=== PATIENT | male | born 1965 | race Caucasian/White ===

== ENCOUNTER 2017-11-11 14:05 | Emergency (ER) | payer SELFPAY ==
--- NOTE | 2017-11-11 14:52 | ER Document Report ---
ED Medical Screen (RME) - General Chief Complaint: Foot Pain Stated Complaint: NAUSEA Time Seen by Provider: 11/11/17 14:49 Mode of Arrival: Ambulatory Information source: Patient TRAVEL OUTSIDE OF THE [place] IN LAST 30 DAYS: No - HPI Patient complains to provider of: R foot pain Onset: Other - pt states he has been having R foot pain and blood in urine - Related Data Allergies/Adverse Reactions: Sulfa (Sulfonamide Antibiotics) Allergy (Verified 11/11/17 14:07) Past Medical History - Social History Chew tobacco use (# tins/day): No Frequency of alcohol use: Heavy Drug Abuse: None Renal/ Medical History: Denies: Hx Peritoneal Dialysis Physical Exam - Vital signs Vitals: Temp Pulse Resp BP Pulse Ox 97.9 F 108 H 19 162/96 H 97 11/11/17 14:33 11/11/17 14:33 11/11/17 14:33 11/11/17 14:33 11/11/17 14:33 Course - Vital Signs Vital signs: Temp Pulse Resp BP Pulse Ox 97.9 F 108 H 19 162/96 H 97 11/11/17 14:33 11/11/17 14:33 11/11/17 14:33 11/11/17 14:33 11/11/17 14:33
[2017-11-11 15:45] LABS: ABSOLUTE EOSINOPHILS # (AUTO) 0.1 10^3/uL (0.0-0.6); ABSOLUTE MONOCYTES (AUTO) 0.5 10^3/uL (0.1-1.4); ABSOLUTE NEUT (AUTO) 2.2 10^3/uL (1.7-8.2); BASOPHILS % (AUTO) 0.5 % (0-2); EOSINOPHILS % (AUTO) 1.9 % (0-6); HEMATOCRIT 47.9 % (37.9-51.0); HEMOGLOBIN 16.7 g/dL (13.5-17.0); LYMPHOCYTES % (AUTO) 27.2 % (13-45); MEAN CORPUSCULAR HEMOGLOBIN 32.9 pg (27.0-33.4); MEAN CORPUSCULAR HGB CONC 34.8 g/dL (32.0-36.0); MEAN CORPUSCULAR VOLUME 95 fl (80-97); MONOCYTES % (AUTO) 13.1 % (3-13); PLATELET COUNT 108 10^3/uL (150-450); RED BLOOD COUNT 5.06 10^6/uL (4.35-5.55); SEGMENTED NEUTROPHILS % (AUTO) 57.3 % (42-78); TOTAL CELLS COUNTED % (AUTO) 100 %; WHITE BLOOD COUNT 3.8 10^3/uL (4.0-10.5)
[2017-11-11 15:58] LABS: ALANINE AMINOTRANSFERASE 236 U/L (21-72); ALBUMIN 4.3 g/dL (3.5-5.0); ALCOHOL 255 mg/dL (NONE DETECTED); ALKALINE PHOSPHATASE 119 U/L (38-126); ANION GAP 12 (5-19); ASPARTATE AMINO TRANSFERASE 199 U/L (17-59); BILIRUBIN,DIRECT 0.5 mg/dL (0.0-0.4); BILIRUBIN,TOTAL 0.8 mg/dL (0.2-1.3); BLOOD UREA NITROGEN 6 mg/dL (7-20); CALCIUM 9.4 mg/dL (8.4-10.2); CARBON DIOXIDE 26 mmol/L (22-30); CHLORIDE 102 mmol/L (98-107); GLUCOSE 86 mg/dL (75-110); POTASSIUM 4.2 mmol/L (3.6-5.0); SODIUM 140.4 mmol/L (137-145); TOTAL PROTEIN 7.2 g/dL (6.3-8.2)
[2017-11-11 16:08] LABS: APPEARANCE,URINE CLEAR; BILIRUBIN,URINE NEGATIVE (NEGATIVE); COLOR,URINE STRAW; GLUCOSE, URINE NEGATIVE (NEGATIVE); KETONES,URINE NEGATIVE (NEGATIVE); LEUKOCYTE ESTERASE,URINE NEGATIVE (NEGATIVE); NITRITE,URINE NEGATIVE (NEGATIVE); PROTEIN,URINE NEGATIVE (NEGATIVE); URINE SPECIFIC GRAVITY 1.002; UROBILINOGEN,URINE NEGATIVE mg/dL (<2.0)
--- NOTE | 2017-11-11 16:14 | RADIOLOGY REPORT (SQ) ---
EXAM DESCRIPTION: FOOT RIGHT COMPLETE COMPLETED DATE/TIME: 11/11/2017 3:56 pm REASON FOR STUDY: swelling; pain COMPARISON: None. NUMBER OF VIEWS: Three views. TECHNIQUE: AP, lateral and oblique without weight bearing radiographic images acquired of the right foot. LIMITATIONS: None. FINDINGS: MINERALIZATION: Normal. BONES: No acute fracture or dislocation. No worrisome bone lesions. No significant osteophytes. JOINTS: No erosions. No shmuel-articular osteopenia. No chondrocalcinosis. SOFT TISSUES: No swelling. No calcifications. OTHER: No other significant finding. IMPRESSION: NEGATIVE STUDY OF THE RIGHT FOOT. NO EXPLANATION FOR PAIN. TECHNICAL DOCUMENTATION: JOB ID: [id number] [employer]- All Rights Reserved
[2017-11-11 18:12] VITALS: BP 142/89
--- NOTE | 2017-11-11 18:33 | ER Document Report ---
ED General - General Chief Complaint: Foot Pain Stated Complaint: NAUSEA Time Seen by Provider: 11/11/17 14:49 Mode of Arrival: Ambulatory Notes: Patient presents with right ankle swelling and pain 3 days. No injury. No redness or fever. History of foot drop on that side and severe lumbar spine disease. Also complains of new onset fecal incontinence, with diarrhea for about 3 days. Denies saddle anesthesia or numbness or tingling. No injection drug use. TRAVEL OUTSIDE OF THE [place] IN LAST 30 DAYS: No - Related Data Allergies/Adverse Reactions: Sulfa (Sulfonamide Antibiotics) Allergy (Verified 11/11/17 14:07) Past Medical History - General Information source: Patient - Social History Smoking Status: Current Every Day Smoker Chew tobacco use (# tins/day): No Smoking Education Provided: Yes - The patient ED visit today was directly related to their abuse of tobacco. Frequency of alcohol use: Heavy Drug Abuse: None Family History: None Patient has suicidal ideation: No Patient has homicidal ideation: No Renal/ Medical History: Denies: Hx Peritoneal Dialysis Review of Systems - Review of Systems Notes: REVIEW OF SYSTEMS GEN: Denies fever, chills, weight loss ENT: Denies sore throat, nasal discharge, ear pain EYES: Denies blurry vision, eye pain, discharge CV: Denies chest pain, palpitations, edema RESP: Denies cough, shortness of breath, wheezing GI: D diarrhea fecal incontinence no abdominal pain a MSK: Swelling and edema SKIN: Denies rash, skin lesions LYMPH: Denies swollen glands/lymph nodes NEURO: Right-sided foot drop chronic PSYCH: Denies depression, suicidal or homicidal ideation PHYSICAL EXAMINATION General: No acute distress, well-nourished Head: Atraumatic, normocephalic ENT: Mouth normal, oropharynx moist, no exudates or tonsillar enlargement Eyes: Conjunctiva normal, pupils equal, lids normal Neck: No JVD, supple, no guarding CVS: Normal rate, regular rhythm, no murmurs Resp: No resp distress, equal and normal breath sounds bilaterally GI: Nondistended, soft, no tenderness to palpation, no rebound or guarding Ext: Moderate edema around the right ankle with good range of motion and no apparent effusion. Back: No CVA or midline TTP Skin: No rash, warm Lymphatic: No lymphadeopathy noted Neuro: Awake, alert. Face symmetric. GCS 15. Decreased strength in p right ankle dorsiflexion. Normal plantar flexion. Normal sensation. Physical Exam - Vital signs Vitals: Temp Pulse Resp BP Pulse Ox 97.9 F 108 H 19 162/96 H 97 11/11/17 14:33 11/11/17 14:33 11/11/17 14:33 11/11/17 14:33 11/11/17 14:33 Course - Re-evaluation Re-evalutation: 11/11/17 18:32 Patient presents with recent onset diarrhea and fecal incontinence which may be due to diarrhea but is concerning for cauda equina in the setting of chronic right foot drop and known lumbar disc disease. I evaluation of the mild leukopenia is normal. Foot x-rays negative. Doubt septic joint given good range of motion and the patient is weightbearing. Offered lumbar spine MRI to rule out cauda equina the patient refused. Recommended return to ED if he changes his mind or expeditious primary care follow-up. I have discussed with the patient there likely diagnosis, aftercare plan, follow-up plans and my usual and customary return precautions. They verbalized understanding of this. - Vital Signs Vital signs: Temp Pulse Resp BP Pulse Ox 98.5 F 88 18 142/89 H 99 11/11/17 18:10 11/11/17 18:10 11/11/17 18:10 11/11/17 18:10 11/11/17 18:10 - Laboratory Result Diagrams: 11/11/17 15:15 11/11/17 15:15 Laboratory results interpreted by me: 11/11/17 11/11/17 15:15 15:15 WBC 3.8 L Plt Count 108 L Monocytes % 13.1 H BUN 6 L Direct Bilirubin 0.5 H AST 199 H ALT 236 H Discharge - Discharge Clinical Impression: Right ankle swelling Condition: Good Disposition: HOME, SELF-CARE Additional Instructions: Please follow-up with your primary care doctor in 2-3 days. You were seen for right ankle swelling and fecal incontinence. We were offered MRI to rule out spinal cord compression but refused. If you change your mind at any point please return to the emergency room and we can do the MRI for you. We did not find a dangerous cause of your ankle swelling.
== END 2017-11-11 18:37 | disposition home or self-care (01) ==
LOC: ER 14:05
DX: M25.471 Effusion, right ankle (principal); M51.9 Unspecified thoracic, thoracolumbar and lumbosacral intervertebral disc disorder; M21.371 Foot drop, right foot; R19.7 Diarrhea, unspecified; R15.9 Full incontinence of feces; F17.200 Nicotine dependence, unspecified, uncomplicated; Z88.2 Allergy status to sulfonamides
CPT/HCPCS: 36415; 80053; 80307; 81001; 85025; 99284

== ENCOUNTER 2017-11-12 13:37 | Emergency (ER) | payer SELFPAY ==
--- NOTE | 2017-11-12 15:09 | ER Document Report ---
HPI - HPI Pain Level: 4 Notes: Patient is a 52-year-old male with a history of chronic back pain who presents to the ED complaining of right lower leg swelling 2 weeks. Patient states that he was here yesterday and declined the MRI of the back at that time. Patient thought about it some more and decided that he wanted to come in for another evaluation. Patient states that he has not had any worsening back pain. Patient states that he is ambulatory without any difficulties otherwise. Patient states that he does have some diarrhea and on occasion has difficulty holding in his gas and "sharts" himself. Patient states that he can still feel when he has to go to the bathroom. He is urinating normally without any retention or loss of control. Patient has not had any injections or surgeries to his lower back. He denies any history of diabetes surgery or recent illness. Patient states that he was told he may need an MRI of his lower back to further evaluate for possible cauda equina, but patient has not had any saddle anesthesia either. He still eating and drinking without difficulties otherwise. He has not noticed any melena or hematochezia. Patient has never had a colonoscopy performed in the past either. Patient states that he does not have any back pain currently and is just concerned with the edema/swelling to his right lower leg. Denies any headache, fever, neck pain, URI, sore throat, chest pain, palpitations, syncope, cough, shortness of breath, wheeze, dyspnea, abdominal pain, nausea/vomiting/diarrhea, urinary retention, dysuria, hematuria, loss of control of bowel or bladder, numbness/ tingling, saddle anesthesia, muscle paralysis/weakness, or rash. + smoker, no IV drugs. - ROS Systems Reviewed and Negative: Yes All other systems reviewed and negative Past Medical History - Social History Smoking Status: Current Every Day Smoker Family History: None Renal/ Medical History: Denies: Hx Peritoneal Dialysis Vertical Provider Document - CONSTITUTIONAL Agree With Documented VS: Yes Notes: PHYSICAL EXAMINATION: GENERAL: Well-appearing, well-nourished and in no acute distress. LUNGS: Breath sounds clear to auscultation bilaterally and equal. No wheezes rales or rhonchi. HEART: Regular rate and rhythm without murmurs, rubs, gallops. ABDOMEN: Soft, nontender, nondistended abdomen. No guarding, no rebound. No masses appreciated. Normal bowel sounds present. No CVA tenderness bilaterally. No pulsatile mass. No obvious inguinal adenopathy or mass. Rectal: sphincter tone intact w/o obvious deficit. Musculoskeletal: LE's b/l: FROM to passive/active. Strength 5+/5. No deficits noted. No bony tenderness of extremities. Back: FROM to passive/active. Strength 5+/5 b/l*. Non-tender. No vertebral point tenderness, stepoffs, or deformities. No other bony tenderness, erythema , swelling, or ecchymosis. SLR negative b/l. No foot drop. Extremities: 2+ pitting edema rt ankle. No edema left. Peripheral pulses 2+. Capillary refill less than 2 seconds. NEUROLOGICAL: Normal speech, normal gait. Normal sensory, motor exams. Reflexes 2+ b/l. PSYCH: Normal mood, normal affect. SKIN: Warm, Dry, normal turgor, no rashes or lesions noted. - INFECTION CONTROL TRAVEL OUTSIDE OF THE [place] IN LAST 30 DAYS: No - RESPIRATORY O2 Sat by Pulse Oximetry: 97 Course - Re-evaluation Re-evalutation: 11/12/17 15:07 I did review this case with Dr. Montaño as this was a return visit from yesterday who is in agreement with assessment and direction of treatment. Patient is an afebrile, well-hydrated, 52-year-old male who presents to the ED with right lower extremity edema. Vitals are stable. PE is otherwise unremarkable for any focal neurological deficits. Patient's back exam was benign with rectal sphincter tone intact, reflexes intact, no saddle anesthesia , and no suspicion of urinary retention/loss of control or b/b. Patient is neurovascularly intact distal otherwise with no foot drop. I do not feel that an MRI is warranted at this time based on H&P. I believe that the patient would most benefit from investigation of possible DVT due to the unilateral leg swelling with venous Doppler. Venous Doppler ordered and pending. Patient is in agreement with plan. 11/12/17 16:11 Venous Doppler negative preliminary report. Low suspicion for any meningitis, fracture, expanding/ruptured AAA, cauda equina syndrome, epidural mass lesion/abscess, herniated disc causing severe spinal stenosis, DVT, or other systemic infection at this time. Patient is aware that his condition can change from initial presentation and that he needs monitor symptoms closely for any acute changes. Recommend conservative measures for symptoms. Recheck with your PCM in 3-5 days. Consider consult with a vascular surgeon/orthopedic. Return to the ED with any worsening/ concerning symptoms otherwise as reviewed discharge. Patient is in agreement. - Vital Signs Vital signs: Temp Pulse Resp BP Pulse Ox 98.0 F 94 17 139/90 H 97 11/12/17 13:41 11/12/17 13:41 11/12/17 13:41 11/12/17 13:41 11/12/17 13:41 Discharge - Discharge Clinical Impression: Edema of right lower extremity Condition: Stable Disposition: HOME, SELF-CARE Instructions: Dependent Edema ([facility]) Additional Instructions: Rest, Ice, Compression, Elevation Compression stockings* Tylenol/ibuprofen as needed Light stretches daily Strength exercises as able Moist heat and massage may help F/u with your PCP in 3-5 days for a recheck Consider consult(s) with Orthopedics/physical therapy/Vascular surgeon for ongoing/worsening symptoms Return to the ED with any worsening symptoms and/or development of fever, headache, chest pain, palpitations, syncope, shortness of breath, trouble breathing, abdominal pain, n/v/d, blood in stool/urine, loss of control of bowel /bladder, urinary retention, muscle weakness/paralysis, saddle anesthesia, numbness/tingling, or other worsening symptoms that are concerning to you. Forms: Elevated Blood Pressure, Smoking Cessation Education Referrals: [facility] [Provider Group] - Follow up as needed
[2017-11-12 16:41] VITALS: BP 139/87
--- NOTE | 2017-11-13 07:45 | XCELERA REPORT ---
[address] [address] Lower Extremity Venous Evaluation Name: RIAN MARC Age: 52 yrs Gender: Male : 1965 Patient Status: Emergency Patient Location: ER Study Date: 11/12/2017 03:45 PM Procedure: Color flow and duplex imaging of the veins of the right lower extremity as well as the left Common Femoral vein. Reason For Study: Rt LE edema, unilateral Ordering Physician: DELMI SAMS PA-C Performed By: Jennifer Varela Right Sided Venous Evaluation Normal vessel filling wall to wall, compression and augmentation as well as Colour flow down to the infrageniculate veins. Left Sided Venous Evaluation The left common femoral vein is fully compressible. Spontaneous and phasic flow is present in the left common femoral vein. Interpretation Summary No duplex evidence of DVT or obstruction in the right lower extremity nor in the left Common Femoral vein. : DELMI SAMS PA-C > Inder [place]
== END 2017-11-12 16:43 | disposition home or self-care (01) ==
LOC: ER 13:37
DX: R60.0 Localized edema (principal); M54.9 Dorsalgia, unspecified; G89.29 Other chronic pain; M79.89 Other specified soft tissue disorders; R19.7 Diarrhea, unspecified; F17.200 Nicotine dependence, unspecified, uncomplicated
CPT/HCPCS: 93971; 99283

== ENCOUNTER 2017-11-27 14:55 | Emergency (ER) | payer SELFPAY ==
--- NOTE | 2017-11-27 15:25 | ER Document Report ---
ED Medical Screen (RME) - General Chief Complaint: Alcohol Withdrawl Stated Complaint: WITHDRAWLS Time Seen by Provider: 11/27/17 15:05 Mode of Arrival: Ambulatory Information source: Patient Notes: 52-year-old male chronic alcoholic who drinks daily from 18-24 beers a day for the past 11 years straight presents with concerns for detox. Patient admits to anxiety states he had stopped drinking at one point for 4 years pt has never seized I have greeted and performed a rapid initial assessment of this patient. A comprehensive ED assessment and evaluation of the patient, analysis of test results and completion of the medical decision making process will be conducted by additional ED providers. PHYSICAL EXAMINATION: GENERAL: anxious appearing HEAD: Atraumatic, normocephalic. EYES: Pupils equal round extraocular movements intact, conjunctiva are normal. ENT: Nares patent NECK: Normal range of motion LUNGS: No respiratory distress Musculoskeletal: Normal range of motion NEUROLOGICAL: Normal speech, normal gait. PSYCH: anxious SKIN: Warm, Dry, normal turgor, no rashes or lesions noted. TRAVEL OUTSIDE OF THE [place] IN LAST 30 DAYS: No - Related Data Allergies/Adverse Reactions: Sulfa (Sulfonamide Antibiotics) Allergy (Verified 11/27/17 14:59) Past Medical History - Social History Frequency of alcohol use: Heavy Drug Abuse: Marijuana Renal/ Medical History: Denies: Hx Peritoneal Dialysis Physical Exam - Vital signs Vitals: Temp Pulse Resp BP Pulse Ox 98.3 F 125 H 16 165/91 H 97 11/27/17 15:02 11/27/17 15:02 11/27/17 15:02 11/27/17 15:02 11/27/17 15:02 Course - Vital Signs Vital signs: Temp Pulse Resp BP Pulse Ox 98.3 F 125 H 16 165/91 H 97 11/27/17 15:02 11/27/17 15:02 11/27/17 15:02 11/27/17 15:02 11/27/17 15:02
[2017-11-27] MEDS ORDERED: PHENOBARBITAL INJ 65 MG/ML VIAL IV ONE (15:38)
[2017-11-27 15:55] LABS: ABSOLUTE LYMPHOCYTES (AUTO) 0.9 10^3/uL (0.5-4.7); ABSOLUTE MONOCYTES (AUTO) 0.5 10^3/uL (0.1-1.4); BASOPHILS % (AUTO) 0.8 % (0-2); EOSINOPHILS % (AUTO) 1.2 % (0-6); HEMATOCRIT 46.9 % (37.9-51.0); HEMOGLOBIN 16.5 g/dL (13.5-17.0); LYMPHOCYTES % (AUTO) 25.8 % (13-45); MEAN CORPUSCULAR HEMOGLOBIN 32.8 pg (27.0-33.4); MEAN CORPUSCULAR HGB CONC 35.1 g/dL (32.0-36.0); MEAN CORPUSCULAR VOLUME 94 fl (80-97); MONOCYTES % (AUTO) 13.6 % (3-13); PLATELET COUNT 120 10^3/uL (150-450); RED BLOOD COUNT 5.02 10^6/uL (4.35-5.55); RED CELL DISTRIBUTION WIDTH 12.7 % (11.5-14.0); SEGMENTED NEUTROPHILS % (AUTO) 58.6 % (42-78); TOTAL CELLS COUNTED % (AUTO) 100 %; WHITE BLOOD COUNT 3.5 10^3/uL (4.0-10.5)
[2017-11-27 16:19] LABS: ALANINE AMINOTRANSFERASE 149 U/L (21-72); ALBUMIN 4.4 g/dL (3.5-5.0); ALCOHOL 224 mg/dL (NONE DETECTED); ALKALINE PHOSPHATASE 92 U/L (38-126); ANION GAP 12 (5-19); ASPARTATE AMINO TRANSFERASE 125 U/L (17-59); BILIRUBIN,DIRECT 0.5 mg/dL (0.0-0.4); BILIRUBIN,TOTAL 0.6 mg/dL (0.2-1.3); BLOOD UREA NITROGEN 5 mg/dL (7-20); CALCIUM 9.1 mg/dL (8.4-10.2); CARBON DIOXIDE 26 mmol/L (22-30); CHLORIDE 102 mmol/L (98-107); GLUCOSE 126 mg/dL (75-110); POTASSIUM 3.8 mmol/L (3.6-5.0); SODIUM 139.6 mmol/L (137-145); TOTAL PROTEIN 7.4 g/dL (6.3-8.2)
[2017-11-27 16:20] LABS: ACETAMINOPHEN < 10 ug/mL (10-30); SALICYLATE < 1.0 mg/dL (2.0-20.0)
[2017-11-27] MEDS ORDERED: NORMAL SALINE 1000 ML 1,000 ML IV ONE ×2 (17:12→19:02)
--- NOTE | 2017-11-27 17:12 | ER Document Report ---
ED Substance Abuse / Acc. OD - General Chief Complaint: Alcohol Withdrawl Stated Complaint: WITHDRAWLS Time Seen by Provider: 11/27/17 15:05 Mode of Arrival: Ambulatory Notes: The patient is a 52-year-old male, past medical history anxiety, chronic alcoholism, presents with leg shakiness and feeling like he is withdrawing from alcohol. His last drink was 2 hours prior to arrival. He usually drinks an 18 pack of beer a day. He has gone through withdrawal before when he was in residential , but did not have any seizures. Patient denies hallucinations, chest pain, shortness of breath, nausea, vomiting, abdominal pain, fevers, neck stiffness, increased anxiety or diaphoresis. TRAVEL OUTSIDE OF THE [place] IN LAST 30 DAYS: No - Related Data Allergies/Adverse Reactions: Sulfa (Sulfonamide Antibiotics) Allergy (Verified 11/27/17 14:59) Past Medical History - General Information source: Patient - Social History Smoking Status: Current Every Day Smoker Frequency of alcohol use: Heavy Drug Abuse: Marijuana Family History: None Patient has suicidal ideation: No Patient has homicidal ideation: No Renal/ Medical History: Denies: Hx Peritoneal Dialysis Review of Systems - Review of Systems Notes: REVIEW OF SYSTEMS: CONSTITUTIONAL: -fevers, -chills EENT: -eye pain, -difficulty swallowing, -nasal congestion CARDIOVASCULAR: -chest pain, -syncope. RESPIRATORY: -cough, -SOB GASTROINTESTINAL: -abdominal pain, -nausea, -vomiting, -diarrhea GENITOURINARY: -dysuria, -hematuria MUSCULOSKELETAL: -back pain, -neck pain SKIN: -rash or skin lesions. HEMATOLOGIC: -easy bruising or bleeding. LYMPHATIC: -swollen, enlarged glands. NEUROLOGICAL: -altered mental status or loss of consciousness, -headache, + shakiness PSYCHIATRIC: -anxiety, -depression. ALL OTHER SYSTEMS REVIEWED AND NEGATIVE. Physical Exam - Vital signs Vitals: Temp Pulse Resp BP Pulse Ox 98.3 F 125 H 16 165/91 H 97 11/27/17 15:02 11/27/17 15:02 11/27/17 15:02 11/27/17 15:02 11/27/17 15:02 - Notes Notes: PHYSICAL EXAMINATION: GENERAL: Well-appearing, well-nourished and in no acute distress. HEAD: Atraumatic, normocephalic. EYES: Pupils equal round and reactive to light, extraocular movements intact, sclera anicteric, conjunctiva are normal. ENT: nares patent, oropharynx clear without exudates. Moist mucous membranes. NECK: Normal range of motion, supple without lymphadenopathy LUNGS: Breath sounds clear to auscultation bilaterally and equal. No wheezes rales or rhonchi. HEART: Tachycardia, regular rhythm. ABDOMEN: Soft, nontender, normoactive bowel sounds. No guarding, no rebound. No masses appreciated. EXTREMITIES: Normal range of motion, no pitting or edema. No cyanosis. NEUROLOGICAL: Cranial nerves grossly intact. Normal speech, normal gait. Arm and leg tremors. PSYCH: Normal mood, normal affect. SKIN: Warm, Dry, normal turgor, no rashes or lesions noted. Course - Re-evaluation Re-evalutation: Patient initially presents with signs of mild to moderate alcohol withdrawal with tachycardia, hypertension and tremors. His initial CIWA score was 9. He was provided a dose of phenobarbital and Valium with improvement of his alcohol withdrawal symptoms. His repeat CIWA score was 3 and tachycardia resolved. Mental health saw the patient and provided him with multiple outpatient resources to help him with detox. He appears safe for outpatient follow-up. Provided him with Librium to help prevent any withdrawal seizures. is upset that if he is discharged that he will begin to drink again. Explained that he needs to want to stop drinking before he is able to stop drinking. She has multiple inpatient and outpatient detox resources to help him stop drinking. Given strict return precautions and he understands. - Vital Signs Vital signs: Temp Pulse Resp BP Pulse Ox 98.3 F 125 H 12 114/75 90 L 11/27/17 15:02 11/27/17 15:02 11/27/17 19:01 11/27/17 19:01 11/27/17 19:01 - Laboratory Result Diagrams: 11/27/17 15:40 11/27/17 15:40 Laboratory results interpreted by me: 11/27/17 11/27/17 11/27/17 15:40 15:40 18:30 WBC 3.5 L Plt Count 120 L Monocytes % 13.6 H BUN 5 L Glucose 126 H Direct Bilirubin 0.5 H AST 125 H ALT 149 H Urine Glucose (UA) >=500 H Salicylates < 1.0 L Acetaminophen < 10 L Discharge - Discharge Clinical Impression: Alcohol withdrawal syndrome without complication Condition: Stable Disposition: HOME, SELF-CARE Additional Instructions: ACUTE ALCOHOL INTOXICATION and ALCOHOL ABUSE: Your evaluation revealed very high levels of alcohol. You can from drinking a large amount of alcohol rapidly! Further, there's the risk of falls , traffic accidents, and fights. A high portion (about 50 percent) of the serious injuries seen in hospital emergency rooms are caused by alcohol. Alcohol overdosage is usually due to an underlying emotional or psychiatric problem. You may benefit from counselling. If "binge" drinking is an ongoing problem for you, or if you drink ANY AMOUNT of alcohol EVERY day, you most likely have a tendency to alcoholism. You should avoid alcohol totally. We can refer you for treatment. Persons with alcohol problems are often also prone to other addictions -- you should discuss any use of medications or drugs with the doctor. You should be watched at home for the next several hours by someone who has not been drinking. Get extra fluids for the next 24 hours. Call the doctor if there is repeated vomiting, increasing headache, decreasing level of alertness, or any other worsening. CHRONIC ALCOHOLISM and ALCOHOL ABUSE: Your evaluation reveals evidence of chronic alcoholism, an addiction to alcohol. The tendency to alcoholism may be inherited. Chronic use of alcohol weakens muscles, causes fatty deposits in the liver , damages the stomach, makes you more prone to infections, and can cause defects in unborn children. In the long run, brain atrophy and cirrhosis of the liver result. You are also at greater risk for certain types of cancer, such as cancer of the mouth, throat, stomach, and liver. Counselling services are available to help you. In-hospital treatment programs often help. Support groups such as Alcoholics Anonymous can be very useful in beating this addiction. Your physician can make a referral for you. As alcoholics often are prone to other addictions, you should discuss your use of any other medications with the doctor. ALCOHOL WITHDRAWAL: Your symptoms are caused by alcohol withdrawal. After a period of frequent drinking, the brain and body are changed by the alcohol. When you quit or reduce your drinking, the nervous system becomes unstable. Withdrawal symptoms can start a few hours after your last drink, but sometimes don't begin until a couple of days later. Symptoms can include shakiness, sweating, insomnia, nausea , vomiting, fearfulness, hallucinations, and seizures. In addition to the acute effects of alcohol withdrawal, we often have to deal with the medical effects of alcoholism. These problems often include dehydration, stomach irritation, intestinal bleeding, low blood sugar, liver disease, and pancreas inflammation. Treatment for alcohol withdrawal includes mild sedatives, vitamins, and fluids. You need to be with someone who can help if symptoms become severe. Many patients can withdraw at home. Admission to the hospital or a detox facility may be necessary if withdrawal symptoms are severe and uncontrollable. Abstaining from alcohol is the only effective long-term treatment. If you start drinking again, you will not be able to control yourself after the first drink. Treatment programs are available. In addition, many alcoholics benefit from Alcoholics Anonymous or other support groups available through your counselor or yarsanism implementation services analyst. [employer] and [employer] are support groups for friends and family members of an alcoholic. Go to the emergency room if you develop persistent vomiting, severe abdominal pain, fever, shortness of breath, hallucinations, uncontrollable tremors, or seizures. INSTRUCTIONS FOR HOME CARE FOLLOWING DRUG OVERDOSAGE: The doctor feels it's safe for you to go home. You will need to be observed. If charcoal and a laxative was given to you, expect some loose black stools soon. Take no medications unless approved by a physician, including alcohol. If drowsy, lie on your stomach or side for sleeping to avoid aspiration if vomiting occurs. Take only liquids by mouth until there is no more nausea. FOR THE OBSERVER: Observe the patient for the next 24 hours and call or go to the hospital if any of the following are noted: prolonged or repeated vomiting, difficulty in arousing, convulsions (seizures or fits), fever, persistent cough, breathing that is too slow or too rapid, or confused or bizarre behavior. If a counselling visit has been arranged, make sure the patient attends. Call the physician or poison control if you have questions. FOLLOW-UP CARE: If you have been referred to a physician for follow-up care, call the physician s office for an appointment as you were instructed or within the next two days. If you experience worsening or a significant change in your symptoms, notify the physician immediately or return to the Emergency Department at any time for re-evaluation. Prescriptions: Chlordiazepoxide HCl [Librium 25 mg Capsule] 1 cap PO QID PRN #10 capsule PRN Reason: Anxiety/Agitation Referrals: [facility] [Outside] - Follow up as needed
[2017-11-27] MEDS ORDERED: NICOTINE 21 MG/24 HR PATCH.TD24 TD ONE (17:37)
[2017-11-27] MEDS ORDERED: DIAZEPAM INJ 10 MG/2 ML DISP.SYRIN IV ONE (18:06)
[2017-11-27 18:50] LABS: APPEARANCE,URINE CLEAR; BILIRUBIN,URINE NEGATIVE (NEGATIVE); COLOR,URINE YELLOW; GLUCOSE, URINE >=500 mg/dL (NEGATIVE); KETONES,URINE NEGATIVE (NEGATIVE); LEUKOCYTE ESTERASE,URINE NEGATIVE (NEGATIVE); NITRITE,URINE NEGATIVE (NEGATIVE); PROTEIN,URINE NEGATIVE (NEGATIVE); URINE SPECIFIC GRAVITY 1.002; UROBILINOGEN,URINE NEGATIVE mg/dL (<2.0)
[2017-11-27 19:13] LABS: URINE AMPHETAMINES SCREEN NEGATIVE; URINE BARBITURATES SCREEN UNCONFIRMED POSITIVE; URINE BENZODIAZEPINES SCREEN NEGATIVE; URINE COCAINE SCREEN NEGATIVE; URINE MARIJUANA (THC) SCREEN NEGATIVE; URINE METHADONE SCREEN NEGATIVE; URINE PHENCYCLIDINE SCREEN NEGATIVE
--- NOTE | 2017-11-27 19:52 | EKG REPORT ---
SEVERITY:- OTHERWISE NORMAL ECG - SINUS TACHYCARDIA : Confirmed by: García Kelsey MD 27-Nov-2017 19:52:10
[2017-11-27 22:11] VITALS: BP 124/94
--- NOTE | 2017-11-27 22:16 | PSYCHOLOGICAL NOTE ---
Psych Note - Psych Note Psych Note: Spoke with Patient who advised he wants to stop drinking but has anxiety about going inpatient or to detox. He denied ever being inpatient previously. Advised Patient that what he was currently doing was not working for him and to consider facing and addressing his anxiety in a supportive structured environment would likely go further in alleviating his anxiety and thus his self -medicating through alcohol. Patient stated he agreed. Patient stated he went to [facility] earlier in the day and was advised the wait to see a provider was at least 90 days. Patient was seen by behavioral health earlier in the day and provided resources and advised to follow up outpatient after discharge. Reinforced and walked him through contacting [facility] (Patient has resource sheet) for assistance in seeking detox upon discharge if he continues to have difficulty with finding treatment in the community. Patient advised that the ED Physician considered him medically clear and ready for discharge. Patient denied current suicidal / homicidal ideation, intent or plan, but experienced suicidal ideation when drinking and under the influence in the past. Patient stated he would contact mobile crisis if needed. Patient denied current suicidal / homicidal ideation, intent or plan. He reported wanting to get sober and denied any previous inpatient / detox stays. Patient acknowledged detox was voluntary and due to his lack of insurance was not a candidate for [facility], and that the [facility] in [place] or [facility] in [place] would be the closest rehab besides [facility], which has a wait list at this time. Patient is considered psychiatrically clear for discharge and reported no suicidal ideation or self-harm concerns. He was provided and explained [facility] process for continuation of services and that they are a 24/7 services, and if contacted upon discharge, they would respond to assist. This information was relayed to the Patient's nurse and ED Physician, who is in agreement with disposition and recommendation.
== END 2017-11-27 22:14 | disposition home or self-care (01) ==
LOC: ER 14:55
DX: F10.239 Alcohol dependence with withdrawal, unspecified (principal); F41.9 Anxiety disorder, unspecified; Z88.2 Allergy status to sulfonamides; F17.200 Nicotine dependence, unspecified, uncomplicated
CPT/HCPCS: 93005; 99285; 96361; 96374; 96375; 36415; 80307 ×4; 85025; 80053; 81001; 93010; J3360; J2560; J7030